=== PATIENT | male | born 1995 | race Caucasian/White ===

== ENCOUNTER 2017-08-23 22:23 | Emergency (ER) | payer OTHER, MEDICAID ==
[2017-08-23 22:32] VITALS: BP 120/65; PULSE 112; RESP 18; TEMP 98.2; O2SAT 100
--- NOTE | 2017-08-23 22:42 | EDPHY ---
H & P Stated Complaint: Detoxing from heroin HPI/ROS: HPI CHIEF COMPLAINT: Detox from heroin. HISTORY OF PRESENT ILLNESS: Patient 22-year-old male, history of IV heroin use , last dose 16 hr ago. He presents emergency room stating that he is going through heroin withdrawal. He states he does not want any medications here he would like to go to detox. Will provide him resources to get detox. He otherwise appears well no acute distress. Denies vomiting. Vital signs are noted to be stable without tachycardia. Past Medical History: Denies medical history Past Surgical History: Denies surgical history Social History: IV heroin use really. Family History: Noncontributory ROS REVIEW OF SYSTEMS: A comprehensive 10 point review of systems is otherwise negative aside from elements mentioned in the history of present illness. Exam Constitutional appears well nontoxic triage nursing summary reviewed, vital signs reviewed, awake/alert. Eyes normal conjunctivae and sclera, EOMI, PERRLA. HENT normal inspection, atraumatic, moist mucus membranes, no epistaxis, neck supple/ no meningismus, no raccoon eyes. Respiratory clear to auscultation bilaterally, normal breath sounds, no respiratory distress, no wheezing. Cardiovascular rate normal, regular rhythm, no murmur, no edema, distal pulses normal. Gastrointestinal soft, non-tender, no rebound, no guarding, normal bowel sounds, no distension, no pulsatile mass. Genitourinary no CVA tenderness. Musculoskeletal no midline vertebral tenderness, full range of motion, no calf swelling, no tenderness of extremities, no meningismus, good pulses, neurovascularly intact. Skin pink, warm, & dry, no rash, skin atraumatic. Neurologic awake, alert and oriented x 3, AAOx3, moves all 4 extremities equally, motor intact, sensory intact, CN II-XII intact, normal cerebellar, normal vision, normal speech. Psychiatric normal mood/affect. Heme/Lymph/Immune no lymphadenopathy. Differential Diagnosis: Includes but is not limited to in a particular order acute heroin withdrawal, need for detox. Medical Decision Making: Plan for this patient he appears hemodynamically stable with no tachycardia he is not vomiting. He otherwise appears well he would like to go to detox. I will provide him resources for this. Source: Patient - Personal History Current Tetanus/Diphtheria Vaccine: Unsure Current Tetanus Diphtheria and Acellular Pertussis (TDAP): Unsure - Medical/Surgical History Hx Asthma: No Hx Chronic Respiratory Disease: No Hx Diabetes: No Hx Cardiac Disease: No Hx Renal Disease: No Hx Cirrhosis: No Hx Alcoholism: No Hx HIV/AIDS: No Hx Splenectomy or Spleen Trauma: No Other PMH: Denies - Social History Smoking Status: Heavy smoker Constitutional: Initial Vital Signs Temperature (C) 36.8 C 08/23/17 22:28 Heart Rate 112 H 08/23/17 22:28 Respiratory Rate 18 08/23/17 22:28 Blood Pressure 120/65 08/23/17 22:28 O2 Sat (%) 100 08/23/17 22:28 O2 Delivery Mode Room Air Allergies/Adverse Reactions: No Known Allergies Allergy (Unverified 08/23/17 22:32) Home Medications: Medication Instructions Recorded NK [No Known Home Meds] 08/23/17 Departure - Departure Disposition: Home, Routine, Self-Care Clinical Impression: Heroin withdrawal Condition: Good Instructions: Narcotic Abuse (ED) Referrals: NONE *PRIMARY CARE P,. [Primary Care Provider] - As per Instructions
== END 2017-08-23 23:08 | disposition home or self-care (01) ==
DX: F11.23 Opioid dependence with withdrawal (principal); F17.200 Nicotine dependence, unspecified, uncomplicated